=== PATIENT | male | born 1975 | race Caucasian/White ===

== ENCOUNTER 2020-10-12 12:54 | Emergency (ER) | payer BC, OTHER ==
[~2020-10-12] VITALS: Ht 172.7 cm; Wt 100.0 kg
[2020-10-12 12:59] VITALS: BP 167/120
[2020-10-12 13:21] LABS: BASOPHILS % 0.8 % (0.0-2.0); EOSINOPHILS % 2.4 % (0.0-5.0); HEMATOCRIT. 43.6 % (42.0-52.0); HEMOGLOBIN. 15.5 g/dL (14.0-18.0); LYMPHOCYTES % 30.8 % (20.0-50.0); MEAN CORPUSCULAR HEMOGLOBIN 31.1 pg (28.0-32.0); MEAN CORPUSCULAR VOLUME 87.7 fL (80.0-94.0); MEAN PLATELET VOLUME 8.8 fl (7.4-10.4); MONOCYTES % 9.1 % (2.0-8.0); NEUTROPHILS % 56.9 % (40.0-76.0); PLATELET 203 x1000/uL (130-400); RED BLOOD CELL COUNT 4.96 mill/uL (4.7-6.1); RED CELL DISTRIBUTION WIDTH 15.8 % (11.6-14.6)
[2020-10-12 13:30] LABS: CHLORIDE 98 mEq/L (98-107)
== END 2020-10-12 15:52 | disposition left against medical advice (07) ==
LOC: ER 12:54
DX: R07.89 Other chest pain (principal); E11.65 Type 2 diabetes mellitus with hyperglycemia; I11.0 Hypertensive heart disease with heart failure; I50.9 Heart failure, unspecified; J44.1 Chronic obstructive pulmonary disease with (acute) exacerbation
CPT/HCPCS: 36415; 80053; 84484; 85025; 93005; 99284